=== PATIENT | male | born 1980 | race Caucasian/White ===

== ENCOUNTER 2016-10-09 17:37 | Emergency (ER) | payer OTHER ==
[~2016-10-09] VITALS: Ht 177.8 cm; Wt 110.0 kg
[~2016-10-09 17:37] MED LIST: Z.0.NO CURRENT MEDS
[2016-10-09 18:32] VITALS: BP 160/94; TEMP 98; O2SAT 99
[2016-10-09] MEDS ORDERED: SODIUM CHLOR 0.9% 1000 ML INJ 1,000 ML IV ONE (18:51)
[2016-10-09] MEDS ORDERED: SODIUM CHLORIDE 0.9% FLUSH 10 ML FLUSH IVF PRN (19:00)
[2016-10-09] MEDS ORDERED: KETOROLAC TROMETHAMINE 30 MG/ML (IVP) VIAL IVP ONE (19:00)
[2016-10-09] MEDS ORDERED: MORPHINE SULFATE 4 MG/ML INJ IV PUSH ONE (19:00)
[2016-10-09] MEDS ORDERED: ONDANSETRON HCL 4 MG/2 ML VIAL IVP ONE (19:00)
[2016-10-09 19:07] VITALS: BP 157/89; PULSE 92; RESP 28; O2SAT 100
--- NOTE | 2016-10-09 19:14 | PD ---
HPI Chief Complaint: Flank/Kidney Pain Time Seen by Provider: 18:30 Travel History International Travel<30 days: No Contact w/Intl Traveler<30days: [place] Traveled to: TRAVELED TO [place] 1.5 MONTHS AGO Traveled to known affect area: No History of Present Illness HPI 35-year-old male presents to the emergency department for evaluation of right flank pain that started today around 2 PM. Patient states that he had an episode of hematuria approximately 2 weeks ago, but it resolved. He is having hematuria at this time. Patient denies any fevers or chills. No chest pain or shortness of breath. He has right flank pain that radiates the right abdomen. He denies any testicular pain or swelling. No penile discharge. No urinary symptoms. He has history of nephrolithiasis approximately 2 years ago with subsequent lithotripsy. He also had an inguinal hernia surgery repair. It is not currently taking any prescribed medications. PFSH Past Medical History Cancer: No Diabetes: No Diminished Hearing: No Genitourinary: Yes Hepatitis: No Hiatal Hernia: No Hypertension: No Kidney Stones: Yes Thyroid Disease: No Tetanus Vaccination: > 5 Years Influenza Vaccination: No Past Surgical History Abdominal Surgery: Yes Cardiac Surgery: No Ear Surgery: No Endocrine Surgery: No Eye Surgery: No Genitourinary Surgery: No Gynecologic Surgery: No Oral Surgery: No Pacemaker: No Thoracic Surgery: No Other Surgery: Yes (right inguinal hernia) Social History Alcohol Use: Yes (occ) Tobacco Use: No (PT DENIES ) Substance Use: No (PT DENIES) Allergies-Medications (Allergen,Severity, Reaction): Coded Allergies: No Known Allergies (Verified , 10/09/16) Reported Meds & Prescriptions Reported Meds & Active Scripts Active Ciprofloxacin (Ciprofloxacin HCl) 500 Mg Tab 500 Mg PO BID 10 Days Flomax (Tamsulosin HCl) 0.4 Mg Cap 0.4 Mg PO HS Lortab (Hydrocodone-Acetaminophen) 5-325 Mg Tab 1 Tab PO Q4H PRN Review of Systems Except as stated in HPI: all other systems reviewed are Neg Physical Exam Narrative GENERAL: Well-nourished, well-developed male patient, afebrile. SKIN: Focused skin assessment warm/dry. HEAD: Normocephalic. Atraumatic EYES: No scleral icterus. No injection or drainage. NECK: Supple, trachea midline. No JVD or lymphadenopathy. CARDIOVASCULAR: Regular rate and rhythm without murmurs, gallops, or rubs. RESPIRATORY: Breath sounds equal bilaterally. No accessory muscle use. Lungs sounds are clear to auscultation GASTROINTESTINAL: Abdomen soft, non-tender, nondistended. MUSCULOSKELETAL: No cyanosis, or edema. BACK: Nontender without obvious deformity. Right CVA tenderness. Data Data Last Documented VS Vital Signs Date Time Temp Pulse Resp B/P (MAP) Pulse Ox O2 Delivery O2 Flow Rate FiO2 10/09/16 19:27 18 10/09/16 19:07 92 157/89 (111) 100 Room Air 10/09/16 18:32 98.0 Orders Orders Complete Blood Count With Diff (10/09/16 18:51) Comprehensive Metabolic Panel (10/09/16 18:51) Urinalysis - C+S If Indicated (10/09/16 18:51) Ct Abd/Pel W/O Iv Contrast (10/09/16 18:51) Ecg Monitoring (10/09/16 18:51) Iv Access Insert/Monitor (10/09/16 18:51) Ketorolac Inj (Toradol Inj) (10/09/16 19:00) Ondansetron Inj (Zofran Inj) (10/09/16 19:00) Sodium Chloride 0.9% Flush (Ns Flush) (10/09/16 19:00) Sodium Chlor 0.9% 1000 Ml Inj (Ns 1000 M (10/09/16 18:51) Morphine Inj (Morphine Inj) (10/09/16 19:00) Urine Culture (10/09/16 18:50) Tamsulosin (Flomax) (10/09/16 20:00) Labs Laboratory Tests Test 10/09/16 18:30 10/09/16 18:50 White Blood Count 11.9 TH/MM3 Red Blood Count 5.35 MIL/MM3 Hemoglobin 14.6 GM/DL Hematocrit 44.9 % Mean Corpuscular Volume 84.0 FL Mean Corpuscular Hemoglobin 27.2 PG Mean Corpuscular Hemoglobin Concent 32.4 % Red Cell Distribution Width 13.5 % Platelet Count 237 TH/MM3 Mean Platelet Volume 8.8 FL Neutrophils (%) (Auto) 62.0 % Lymphocytes (%) (Auto) 26.4 % Monocytes (%) (Auto) 9.3 % Eosinophils (%) (Auto) 1.1 % Basophils (%) (Auto) 1.2 % Neutrophils # (Auto) 7.4 TH/MM3 Lymphocytes # (Auto) 3.1 TH/MM3 Monocytes # (Auto) 1.1 TH/MM3 Eosinophils # (Auto) 0.1 TH/MM3 Basophils # (Auto) 0.1 TH/MM3 CBC Comment DIFF FINAL Differential Comment Blood Urea Nitrogen 11 MG/DL Creatinine 1.15 MG/DL Random Glucose 103 MG/DL Total Protein 7.2 GM/DL Albumin 3.9 GM/DL Calcium Level 8.7 MG/DL Alkaline Phosphatase 103 U/L Aspartate Amino Transf (AST/SGOT) 37 U/L Alanine Aminotransferase (ALT/SGPT) 115 U/L Total Bilirubin 0.4 MG/DL Sodium Level 141 MEQ/L Potassium Level 3.4 MEQ/L Chloride Level 108 MEQ/L Carbon Dioxide Level 24.8 MEQ/L Anion Gap 8 MEQ/L Estimat Glomerular Filtration Rate 73 ML/MIN Urine Color LIGHT-BROWN Urine Turbidity HAZY Urine pH 8.5 Urine Specific Strawn 1.016 Urine Protein 100 mg/dL Urine Glucose (UA) NEG mg/dL Urine Ketones NEG mg/dL Urine Occult Blood LARGE Urine Nitrite NEG Urine Bilirubin NEG Urine Urobilinogen LESS THAN 2.0 MG/DL Urine Leukocyte Esterase NEG Urine RBC /hpf Urine WBC 10 /hpf Urine Calcium Oxalate Crystals MANY /hpf Urine Mucus FEW /lpf Microscopic Urinalysis Comment CULTURE INDICATED MDM Medical Decision Making Medical Screen Exam Complete: Yes Emergency Medical Condition: Yes Medical Record Reviewed: Yes Interpretation(s) Last Impressions Abdomen/Pelvis CT 10/09/16 1851 Signed Impressions: Service Date/Time: Sunday, October 09, 2016 19:16 - CONCLUSION: 1. Acute obstructive uropathy of the right proximal ureter secondary to a 5 mm calcified calculus resulting in mild hydronephrosis. 2. Fatty liver. 3. 9 mm calcified non-obstructing upper pole left renal calculus. 4. Few uncomplicated sigmoid diverticula. 5. Mild scoliosis of the lumbar spine. Neptali Contreras MD Differential Diagnosis Nephrolithiasis versus hydronephrosis versus ureterolithiasis versus UTI versus unlikely appendicitis Narrative Course 35-year-old male presents to the emergency department for evaluation of right flank pain that started today. Patient is comfortable on my exam. CBC, CMP, UA , CT abdomen/pelvis without contrast. Patient is given NS 1 L IV bolus, Zofran 4 mg IV, Toradol 30 mg IV, Morphine 4 mg IV. CBC shows slight leukocytosis of 11.9. CMP shows no acute abnormality. UA shows [address] abdomen/pelvis 1. Acute obstructive uropathy of the right proximal ureter secondary to a 5 mm calcified calculus resulting in mild hydronephrosis; 2. Fatty liver; 3. 9 mm calcified non-obstructing upper pole left renal calculus; 4. Few uncomplicated sigmoid diverticula; 5. Mild scoliosis of the lumbar spine. Upon re-examination, patient states he feels much better. Patient is given Flomax 0.4 mg PO. I discussed the case with my attending physician, Dr. Brady , who agrees with plan and disposition. Patient will be discharged with a prescription for Flomax, Lortab, Cipro. He is to follow up with urology. He is to return here for any acute, worsening of symptoms. Diagnosis Primary Impression: Nephrolithiasis Referrals: Stanley Osullivan MD 2 days Patient Instructions: General Instructions, Kidney Stones (ED) Additional Instructions: Take Lortab as directed as needed for pain. Caution this can make you drowsy so do not drive after taking. Take Flomax as directed. Take Cipro as directed until gone. Follow up with a urologist. Dr. Osullivan is the urologist on-call today. Return here for any acute worsening of symptoms. Med/Other Pt SpecificInfo: Prescription(s) given Scripts Ondansetron Odt (Ondansetron Odt) 4 Mg Tab 4 MG SL Q6HR Y for Nausea/Vomiting, #12 TAB 0 Refills Prov: Natividad Graves 10/09/16 Ciprofloxacin (Ciprofloxacin) 500 Mg Tab 500 MG PO BID for Infection for 10 Days, TAB 0 Refills Prov: Natividad Graves 10/09/16 Tamsulosin (Flomax) 0.4 Mg Cap 0.4 MG PO HS for Manage Prostate Problems, #14 CAP 0 Refills Prov: Natividad Graves 10/09/16 Hydrocodone-Acetaminophen (Lortab) 5-325 Mg Tab 1 TAB PO Q4H Y for PAIN, #16 TAB 0 Refills Prov: Morena Brady MD 10/09/16 Disposition: 01 DISCHARGE HOME Condition: Stable Natividad Graves KHURRAM Oct 09, 2016 19:14
[2016-10-09 19:15] LABS: AUTOMATED NEUTROPHIL # 7.4 TH/MM3 (1.8-7.7); BASOPHIL # 0.1 TH/MM3 (0-0.2); BASOPHIL % 1.2 % (0.0-2.0); EOSINOPHIL # 0.1 TH/MM3 (0-0.4); EOSINOPHIL % 1.1 % (0.0-4.0); HEMATOCRIT 44.9 % (39.0-51.0); HEMO FLAGS DIFF FINAL; LYMPH % 26.4 % (9.0-44.0); LYMPHOCYTE # 3.1 TH/MM3 (1.0-4.8); MEAN CORPUSCULAR HEMOGLOBIN 27.2 PG (27.0-34.0); MEAN CORPUSCULAR HGB CONC 32.4 % (32.0-36.0); MONO % 9.3 % (0.0-8.0); PLATELET COUNT 237 TH/MM3 (150-450); RED BLOOD COUNT 5.35 MIL/MM3 (4.50-5.90); RED CELL DISTRIBUTION WIDTH 13.5 % (11.6-17.2); WHITE BLOOD COUNT 11.9 TH/MM3 (4.0-11.0)
[2016-10-09 19:27] VITALS: RESP 18
[2016-10-09 19:32] LABS: ANION GAP 8 MEQ/L (5-15); AST (GOT) 37 U/L (15-37); BICARBONATE 24.8 MEQ/L (21.0-32.0); BLOOD UREA NITROGEN 11 MG/DL (7-18); CHLORIDE 108 MEQ/L (98-107); GLOMERULAR FILTRATION RATE 73 ML/MIN (>89); POTASSIUM 3.4 MEQ/L (3.5-5.1); SODIUM (NA) 141 MEQ/L (136-145)
[2016-10-09 19:34] LABS: ALT (GPT) 115 U/L (12-78)
--- NOTE | 2016-10-09 19:34 | RADRPT ---
EXAM DATE/TIME: 10/09/2016 19:16 [facility] COMPARISON: CT ABDOMEN & PELVIS W/O CONTRAST, July 15, 2010, 4:55. INDICATIONS : Right sided flank pain. ORAL CONTRAST: No oral contrast ingested. RADIATION DOSE: 8.56 CTDIvol (mGy) MEDICAL HISTORY : Renal calculi. Hernia, inguinal. SURGICAL HISTORY : Inguinal hernia repair. ENCOUNTER: Initial ACUITY: 1 day PAIN SCALE: 6/10 LOCATION: Right flank TECHNIQUE: Volumetric scanning of the abdomen and pelvis was performed. Using automated exposure control and adjustment of the mA and/or kV according to patient size, radiation dose was kept as low as reasonably achievable to obtain optimal diagnostic quality images. DICOM format image data is av ailable electronically for review and comparison. FINDINGS: LOWER LUNGS: The visualized lower lungs are clear. LIVER: There is diffuse fatty infiltration of the liver. No focal hepatic mass is noted. There is no dilation of the biliary tree. No calcified gallstones. SPLEEN: Normal size without lesion. PANCREAS: Within normal limits. KIDNEYS: There is acute obstructive uropathy of the right proximal ureter segment to a 5 mm calci fied calculus resulting in mild hydronephrosis on the right. There is a 9 mm calcified upper pole non -obstructing left renal calculus. ADRENAL GLANDS: Within normal limits. VASCULAR: There is no aortic aneurysm. BOWEL/MESENTERY: Few uncomplicated colonic diverticula are noted. The appendix is normal. No steven l obstruction is noted. ABDOMINAL WALL: Within normal limits. RETROPERITONEUM: There is no lymphadenopathy. BLADDER: No wall thickening or mass. REPRODUCTIVE: Within normal limits. INGUINAL: There is no lymphadenopathy or hernia. MUSCULOSKELETAL: Mild scoliosis of lumbar spine is noted. CONCLUSION: 1. Acute obstructive uropathy of the right proximal ureter secondary to a 5 mm calcified calculus res ulting in mild hydronephrosis. 2. Fatty liver. 3. 9 mm calcified non-obstructing upper pole left renal calculus. 4. Few uncomplicated sigmoid diverticula. 5. Mild scoliosis of the lumbar spine. Neptali Contreras MD on October 09, 2016 at 19:27 Board Certified Radiologist. This report was verified electronically.
[2016-10-09 19:35] LABS: ALKALINE PHOSPHATASE 103 U/L (45-117); TOTAL BILIRUBIN ADULT 0.4 MG/DL (0.2-1.0)
[2016-10-09 19:41] LABS: BLOOD, URINE LARGE (NEG); CALCIUM OXALATE CRYSTALS,URINE MANY /hpf; COMMENT (UR) CULTURE INDICATED; CULTURE IF INDICATED CULTURE INDICATED; GLUCOSE,URINE NEG (NEG); KETONE, URINE NEG (NEG); MUCUS URINE FEW /lpf (OCC); NITRITE,URINE NEG (NEG); PH, URINE 8.5 (5.0-8.5); URINE COLOR LIGHT-BROWN (YELLW/STRAW)
[2016-10-09] MEDS ORDERED: HYDR-3533 PO (19:59)
[2016-10-09] MEDS ORDERED: TAMSULOSIN HCL 0.4 MG CAP PO ONE (20:00)
[2016-10-09] MEDS ORDERED: CIPR500T2 PO (20:02)
[2016-10-09] MEDS ORDERED: TAMS5CAP PO (20:02)
[2016-10-09] MEDS ORDERED: ONDA4TAB7 SL (20:07)
[2016-10-10] MEDS ORDERED: NAPR500 PO (15:21)
== END 2016-10-09 20:54 | disposition home or self-care (01) ==
LOC: NEPD 17:37
DX: N20.0 Calculus of kidney (principal); R31.9 Hematuria, unspecified; D72.829 Elevated white blood cell count, unspecified; Z87.448 Personal history of other diseases of urinary system
CPT/HCPCS: 74176; 80053; 81001; 85025; 87086; 96361; 96374; 96375; 99285; J1885; J2270; J2405; J7030

== ENCOUNTER 2016-10-10 13:13 | Emergency (ER) | payer OTHER ==
[~2016-10-10] VITALS: Ht 177.8 cm; Wt 109.0 kg
[~2016-10-10 13:13] MED LIST changes: +CIPR500T2 PO; +HYDR-3533 PO; +ONDA4TAB7 SL; +TAMS5CAP PO; -Z.0.NO CURRENT MEDS
[2016-10-10 13:15] VITALS: BP 183/115; PULSE 74; RESP 24; TEMP 97.9; O2SAT 99
[2016-10-10] MEDS ORDERED: ONDANSETRON HCL 4 MG/2 ML VIAL IV PUSH ONE (13:30)
[2016-10-10] MEDS ORDERED: SODIUM CHLOR 0.9% 1000 ML INJ 1,000 ML IV ONE (13:30)
[2016-10-10] MEDS ORDERED: KETOROLAC TROMETHAMINE 30 MG/ML (IVP) VIAL IV PUSH ONE (13:30)
--- NOTE | 2016-10-10 13:30 | PD ---
HPI Chief Complaint: Flank/Kidney Pain Time Seen by Provider: 13:24 Travel History International Travel<30 days: No Contact w/Intl Traveler<30days: No Traveled to known affect area: No History of Present Illness HPI 35-year-old male presents back to the emergency department. Patient was seen yesterday evening for right flank pain that radiates the right abdomen. Labs, CT were completed. CT showed acute instructed uropathy of the right proximal ureter secondary to a 5 mm calcified calculus resulting in mild hydronephrosis. Lab shows slight leukocytosis of 11.9, no acute abnormality. The patient felt much better after pain relief in the emergency department. He states he was able to sleep last night, but woke up this morning and pain. He states that his Lortab is not working for the pain at this time. He states the pain yesterday was 10 out of 10. Today it is 8 out of 10. He states nausea, but no vomiting. No fevers or chills. He does have history of kidney stone in 2010 that required lithotripsy. He has no other medical problems and takes no other medications. PFSH Past Medical History Cancer: No Diabetes: No Diminished Hearing: No Genitourinary: Yes Hepatitis: No Hiatal Hernia: No Hypertension: No Kidney Stones: Yes Thyroid Disease: No Past Surgical History Abdominal Surgery: Yes Cardiac Surgery: No Ear Surgery: No Endocrine Surgery: No Eye Surgery: No Genitourinary Surgery: No Gynecologic Surgery: No Oral Surgery: No Pacemaker: No Thoracic Surgery: No Other Surgery: Yes (right inguinal hernia) Social History Alcohol Use: Yes (occ) Tobacco Use: No (PT DENIES ) Substance Use: No (PT DENIES) Allergies-Medications (Allergen,Severity, Reaction): Coded Allergies: No Known Allergies (Verified , 10/10/16) Reported Meds & Prescriptions Reported Meds & Active Scripts Active Ondansetron Odt 4 Mg Tab 4 Mg SL Q6HR PRN Ciprofloxacin (Ciprofloxacin HCl) 500 Mg Tab 500 Mg PO BID 10 Days Flomax (Tamsulosin HCl) 0.4 Mg Cap 0.4 Mg PO HS Lortab (Hydrocodone-Acetaminophen) 5-325 Mg Tab 1 Tab PO Q4H PRN Review of Systems Except as stated in HPI: all other systems reviewed are Neg Physical Exam Narrative GENERAL: Well-nourished, well-developed male patient, afebrile. SKIN: Focused skin assessment warm/dry. HEAD: Normocephalic. Atraumatic. EYES: No scleral icterus. No injection or drainage. NECK: Supple, trachea midline. No JVD or lymphadenopathy. CARDIOVASCULAR: Regular rate and rhythm without murmurs, gallops, or rubs. RESPIRATORY: Breath sounds equal bilaterally. No accessory muscle use. Lungs sounds are clear to auscultation. GASTROINTESTINAL: Abdomen soft, non-tender, nondistended. MUSCULOSKELETAL: No cyanosis, or edema. BACK: Nontender without obvious deformity. No CVA tenderness. Data Data Last Documented VS Vital Signs Date Time Temp Pulse Resp B/P (MAP) Pulse Ox O2 Delivery O2 Flow Rate FiO2 10/10/16 13:59 79 24 175/108 (130) 99 Room Air 10/10/16 13:15 97.9 Orders Orders Iv Access Insert/Monitor (10/10/16 13:29) Sodium Chlor 0.9% 1000 Ml Inj (Ns 1000 M (10/10/16 13:30) Ondansetron Inj (Zofran Inj) (10/10/16 13:30) Ketorolac Inj (Toradol Inj) (10/10/16 13:30) Hydromorphone Pf Inj (Dilaudid Pf Inj) (10/10/16 13:45) MDM Medical Decision Making Medical Screen Exam Complete: Yes Emergency Medical Condition: Yes Medical Record Reviewed: Yes Differential Diagnosis Nephrolithiasis versus hydronephrosis versus septic stone Narrative Course 35-year-old male presents back to the emergency department stating his Lortab is not giving him pain relief. Patient has a 5 mm calculus. I reviewed visit from yesterday. IV access established. Patient is given normal saline 1 L IV bolus, Zofran 4 mg IV, Toradol 30 mg IV, Dilaudid 1 mg IV. After medications, patient is pain free. I discussed the case with my attending physician, Dr. Danielson, who states patient is stable for outpatient follow up with urology with addition of NSAID. Patient will be discharged with a prescription for Naprosyn. The patient was discharged in stable condition with instructions, including return instructions and follow up instructions. Diagnosis Primary Impression: Nephrolithiasis Referrals: Stanley Osullivan MD call for appointment Patient Instructions: General Instructions, Kidney Stones (ED) Additional Instructions: Continue Lortab as directed as needed for pain. You may increase this to 2 tablets every 6 hours as needed. Take naproxen twice daily. Continue Flomax. Continue Cipro. Follow up with urologist. Dr. Osullivan's information is attached. Return to the emergency department for any acute worsening of symptoms. Med/Other Pt SpecificInfo: Prescription(s) given Scripts Naproxen (Naprosyn) 500 Mg Tab 500 MG PO BID Y for PAIN SCALE 1 TO 10 for 10 Days, #60 TAB 0 Refills Prov: Natividad Graves 10/10/16 Disposition: 01 DISCHARGE HOME Condition: Stable Natividad Graves Oct 10, 2016 13:30
[2016-10-10] MEDS ORDERED: HYDROmorphone HCL PF 1 MG/ML VIAL IVS ONE (13:45)
[2016-10-10 13:59] VITALS: BP 175/108; PULSE 79; RESP 24; O2SAT 99
[2016-10-10 14:30] VITALS: BP 174/98; PULSE 82; RESP 18; O2SAT 96
[2016-10-10 15:21] VITALS: RESP 20
[2016-10-10] MEDS ORDERED: NAPR500 PO (15:21)
== END 2016-10-10 15:50 | disposition home or self-care (01) ==
LOC: NEPD 13:13
DX: N13.2 Hydronephrosis with renal and ureteral calculous obstruction (principal)
CPT/HCPCS: 96361; 96374; 96375; 99284; J1170; J1885; J2405; J7030